=== PATIENT | female | born 1990 | race Caucasian/White ===

== ENCOUNTER 2018-05-08 01:16 | Inpatient (IN) | payer MEDICAID ==
[2018-05-08 02:37] LABS: RUPTURE FETAL MEMBRANES POSITIVE (NEGATIVE)
[2018-05-08] MEDS ORDERED: METHYLERGONOVINE 0.2 MG INJ IM (03:30)
[2018-05-08] MEDS ORDERED: IBUPROFEN 600 MG TAB PO (03:30)
[2018-05-08] MEDS ORDERED: MISOPROSTOL 200 MCG TAB PR (03:30)
[2018-05-08] MEDS ORDERED: OXYTOCIN 30 UNITS/LR 500 ML IV (03:30)
[2018-05-08] MEDS ORDERED: CARBOPROST 250 MCG INJ IM (03:30)
[2018-05-08] MEDS ORDERED: BUTORPHANOL 2 MG INJ IV (03:30)
[2018-05-08] MEDS: LACTATED RINGER'S 1,000 ML IV* (03:33)
[2018-05-08] MEDS ORDERED: GLUCOSE GEL 15 GRAM TUBE BUCCAL (04:00)
[2018-05-08] MEDS ORDERED: DEXTROSE 50% 50 ML SYRINGE IV ×2 (04:00)
[2018-05-08] MEDS ORDERED: GLUCAGON 1 MG INJ IM (04:00)
[2018-05-08] MEDS ORDERED: GLUCOSE GEL 15 GRAM TUBE PO ×2 (04:00)
[2018-05-08] MEDS ORDERED: MISOPROSTOL 100 MCG TAB PO (04:00)
[2018-05-08] MEDS: MISOPROSTOL 50 MCG CAPSULE PO ×2 (04:29→08:00)
[2018-05-08] MEDS ORDERED: ACCU-CHEK XX (05:00)
[2018-05-08 05:20] LABS: ADD MAN DIFF? NO
[2018-05-08 05:24] LABS: BASOPHILS % 0.4 % (0.0-2.0); EOSINOPHILS # 0.1 10^3/ul (0.0-0.5); EOSINOPHILS % 1.3 % (0.0-7.0); HEMATOCRIT 34.8 % (37.0-47.0); HEMOGLOBIN 11.5 g/dl (12.0-16.0); LYMPHOCYTES % 28.4 % (15.0-51.0); MEAN CORPUSCULAR HEMOGLOBIN 27.2 pg (29.0-33.0); MEAN CORPUSCULAR VOLUME 82.3 fl (82.0-101.0); MEAN PLATELET VOLUME 11.7 fl (7.4-10.4); MONOCYTE # 0.4 10^3/ul (0.3-0.9); NEUTROPHIL # 4.6 10^3/ul (1.6-7.5); NEUTROPHILS % 64.5 % (39.0-77.0); PLATELET COUNT 301 10^3/UL (140-415); RED BLOOD COUNT 4.23 10^6/ul (4.20-5.40); RED CELL DISTRIBUTION WIDTH 13.3 % (11.5-14.5)
[2018-05-08 05:24] LABS: WHITE BLOOD COUNT 7.2 10^3/ul (4.8-10.8)
[2018-05-08 05:42] LABS: INR 0.87; PROTIME 11.9 Sec (11.9-14.9); PT RATIO 0.9
[2018-05-08 05:43] LABS: PARTIAL THROMBOPLASTIN TIME 24.8 Sec (23.0-35.0)
[2018-05-08 05:50] LABS: GLUCOSE 87 mg/dl (70-220)
[2018-05-08 06:30] LABS: HEPATITIS B SURFACE ANTIGEN NEGATIVE (NEGATIVE)
[2018-05-08] MEDS ORDERED: NALOXONE (0.4 MG/ML) INJ IV (08:00)
[2018-05-08] MEDS ORDERED: FENTAnyl 2MCG/ML-ROPIV 0.2% 100 ML BAG EPI (08:00)
[2018-05-08] MEDS ORDERED: KETOROLAC 30 MG INJ IV (08:00)
[2018-05-08] MEDS ORDERED: ONDANSETRON 4 MG INJ IV ×2 (08:00→15:30)
[2018-05-08] MEDS ORDERED: ZOLPIDEM 5 MG TAB PO (08:00)
[2018-05-08] MEDS ORDERED: DIPHENHYDRAMINE 50 MG INJ IV (08:00)
[2018-05-08] MEDS ORDERED: HYDROmorphONE 0.5 MG/0.5 ML SYG IV ×2 (08:00)
[2018-05-08] MEDS: LACTATED RINGER'S 1,000 ML IV (08:01)
[2018-05-08] MEDS: DEXTROSE 5%-LR 1,000 ML IV (11:07)
[2018-05-08] MEDS: MINERAL OIL LIGHT 10 ML VIAL TOP (11:17)
[2018-05-08] MEDS: LIDOCAINE 0.5% (SDV) 50 ML INJ INFIL (11:18)
[2018-05-08] MEDS: OXYTOCIN 30 UNITS/LR 500 ML IV ×3 (11:41→16:40)
[2018-05-08 15:24] LABS: RAPID PLASMA REAGIN NONREACTIVE (NR)
[2018-05-08] MEDS ORDERED: HYDROCODONE/APAP (5/325) TAB PO ×2 (15:30)
[2018-05-08] MEDS ORDERED: OXYCODONE/ASPIRIN (4.88/325) TAB PO ×2 (15:30)
[2018-05-08] MEDS: BENZOCAINE 20% 56 ML SPRAY TOP (18:09)
[2018-05-08] MEDS: WITCH HAZEL/GLYCERIN PAD PR (18:09)
[2018-05-08] MEDS: LANOLIN 7 GM TUBE TOP (18:10)
[2018-05-08] MEDS: DIBUCAINE 1% 30 GM OINT PR (18:10)
[2018-05-08] MEDS: ACETAMINOPHEN 325 MG TAB PO (18:11)
[2018-05-08] MEDS: SENNA/DOCUSATE NA (8.6MG/50MG) TAB PO (21:29)
[2018-05-08] MEDS: IBUPROFEN 600 MG TAB PO (23:57)
[2018-05-09] MEDS: IBUPROFEN 600 MG TAB PO ×4 (05:36→23:52)
[2018-05-09 08:45] LABS: ADD MAN DIFF? NO
[2018-05-09 08:52] LABS: BASOPHILS % 0.4 % (0.0-2.0); EOSINOPHILS # 0.1 10^3/ul (0.0-0.5); EOSINOPHILS % 1.2 % (0.0-7.0); HEMATOCRIT 30.2 % (37.0-47.0); HEMOGLOBIN 10.2 g/dl (12.0-16.0); LYMPHOCYTES # 2.1 10^3/ul (0.8-2.9); LYMPHOCYTES % 26.7 % (15.0-51.0); MEAN CORPUSCULAR HEMOGLOBIN 27.7 pg (29.0-33.0); MEAN CORPUSCULAR HGB CONC 33.8 g/dl (32.0-37.0); MEAN CORPUSCULAR VOLUME 82.1 fl (82.0-101.0); MEAN PLATELET VOLUME 11.4 fl (7.4-10.4); MONOCYTE # 0.3 10^3/ul (0.3-0.9); MONOCYTES % 4.2 % (0.0-11.0); NEUTROPHIL # 5.3 10^3/ul (1.6-7.5); NEUTROPHILS % 67.4 % (39.0-77.0); PLATELET COUNT 242 10^3/UL (140-415); RED BLOOD COUNT 3.68 10^6/ul (4.20-5.40); RED CELL DISTRIBUTION WIDTH 13.5 % (11.5-14.5)
[2018-05-09 08:52] LABS: WHITE BLOOD COUNT 7.8 10^3/ul (4.8-10.8)
[2018-05-09] MEDS: SENNA/DOCUSATE NA (8.6MG/50MG) TAB PO ×2 (09:16→21:22)
[2018-05-09] MEDS ORDERED: IBUPROFEN 600 MG TAB PO (12:00)
[2018-05-10] MEDS: IBUPROFEN 600 MG TAB PO ×2 (05:30→12:08)
[2018-05-10] MEDS: MEASLES,MUMPS,RUBELLA VACCINE INJ SC* (09:00)
[2018-05-10] MEDS: SENNA/DOCUSATE NA (8.6MG/50MG) TAB PO (09:00)
== END 2018-05-10 12:50 | disposition home or self-care (01) | DRG 807 ==
LOC: OBT 01:16 → L-D 01:19 → OBT 03:05 → L-D 02:50 → PP1 14:16
PROVIDERS: Obstetrics & Gynecology
PROC: 10E0XZZ Delivery of Products of Conception, External Approach (ICD-10-PCS; principal; 2018-05-08)
DX: O24.425 Gestational diabetes mellitus in childbirth, controlled by oral hypoglycemic drugs (principal); Z37.0 Single live birth; O42.013 Preterm premature rupture of membranes, onset of labor within 24 hours of rupture, third trimester; Z3A.37 37 weeks gestation of pregnancy; Z23 Encounter for immunization
CPT/HCPCS: 62319; 76815; 82947; 82962; 84112; 85025; 85610; 85730; 86592; 86850; 86900; 86901; 87340; 90686